=== PATIENT | female | born 1940 | race Caucasian/White ===

== ENCOUNTER 2019-05-04 17:31 | Inpatient (IN) | payer MEDICARE, OTHER ==
[~2019-05-04] VITALS: Ht 160 cm; Wt 64.9 kg
[2019-05-04 18:26] LABS: Basophils # (auto) 0 uL; Basophils % (auto) 0.4 % (0.0-2.0); Eosinophils # (auto) 0 uL; Hematocrit 39.3 % (36.0-46.0); Lymphocytes # (auto) 1.2 uL; Mean Corpuscular Hemoglobin 34.1 pg (28.0-32.0); Monocytes # (auto) 0.6 uL; Neutrophils # (auto) 6.5 uL; White Blood Cell 8.3 10^3/uL (4.4-10.8)
[2019-05-04 18:28] LABS: Eosinophils % (auto) 0.6 % (0.0-7.0); Hemoglobin 13.2 g/dL (12.2-16.2); Lymphocytes % (auto) 13.9 % (10.0-50.0); Mean Corpuscular Hgb Conc. 33.7 g/dL (32.0-36.0); Mean Corpuscular Volume 101.1 fL (80.0-100.0); Monocytes % (auto) 6.7 % (0.0-12.0); Neutrophils % (auto) 78.4 % (37.0-80.0); Platelet Count (auto) 184 10^3/uL (140-450); Red Blood Cells 3.88 10^6/uL (4.0-5.20); Red Cell Distribution Width 15.6 % (11.8-14.3)
[2019-05-04 18:42] LABS: Albumin 3.1 g/dL (3.4-5.0); Calcium 8.7 mg/dL (8.5-10.1)
[2019-05-04 18:47] LABS: Bilirubin, Total 0.8 mg/dL (0.2-1.0); Total Protein 6.6 g/dL (6.4-8.2)
[2019-05-04] MEDS ORDERED: MORPHINE SULFATE 4 MG/ML SYR/VIAL IV ONE (19:30)
[2019-05-04] MEDS ORDERED: ONDANSETRON HCL 4 MG/2 ML VIAL IV ONE (19:30)
[2019-05-04] MEDS ORDERED: MORPHINE SULF INJ 2 MG/ML SYRINGE 1ML IV PRN (22:30)
[2019-05-04] MEDS ORDERED: NITROGLYCERIN 0.4 MG SL TAB SL PRN (22:30)
[2019-05-04] MEDS ORDERED: ONDANSETRON HCL 4 MG/2 ML VIAL IV PRN (22:30)
[2019-05-04] MEDS ORDERED: SODIUM CHLORIDE 0.9% 1,000 ML IV SCH (22:30)
[2019-05-04] MEDS: MORPHINE SULF INJ 2 MG/ML SYRINGE 1ML IV PRN (23:11)
[2019-05-05] VITALS (7 sets, daily range): BP systolic 97–146; BP diastolic 58–83
--- NOTE | 2019-05-05 00:05 | NUR ---
Telemetry admit from ER EBONY RUTLEDGE admitted to Telemetry. Patient oriented to ELAINE FORMAN, primary RN, unit, room, bed, and unit policies regarding patient care and visiting hours. Patient now on continuous telemetry monitoring, tele box #28 and telemetry reading on arrival to unit is Sinus Rhythm 60BPM. Patient placed on 12L oxygen via oximyzer,weighed by bedscale and encouraged to call if they need something. All questions and concerns addressed, patient verbalized understanding. Daughter at bed side.
--- NOTE | 2019-05-05 00:15 | NUR ---
MED REC UNABLE TO OBTAIN HOME MEDICATION RECORD DUE TO PATIENT NOT RECALLING NAMES/DOSAGES DAUGHTER STATES SHE WILL BRING LIST 10/7 AM.
--- NOTE | 2019-05-05 00:20 | NUR ---
ADVANCE DIRECTIVE/ POA COPY IN HARD CHART
--- NOTE | 2019-05-05 00:25 | NUR ---
WOUND WOUND TO LEFT LOWER LEG ASSESSED, PHOTO TAKEN AND FILED, RE DRESSED WITH ADHESIVE OPTIFOAM.
--- NOTE | 2019-05-05 00:30 | NUR ---
IV insertion IV access obtained, via clean sterile technique by inserting 22 gauge catheter at right wrist after 1 attempt. IV secured properly. No trauma to site. Patient tolerated well.
--- NOTE | 2019-05-05 00:32 | NUR ---
IV removal LAC IV NON PATENT IV DC'd with clean sterile technique, catheter fully intact. Pressure dressing applied to site. Patient tolerated well.
--- NOTE | 2019-05-05 01:11 | NUR ---
PATIENT DAUGHTER SYBIL REQUESTED TO STAY OVER NIGHT. PATIENT AND DAUGHTER EXPLAINED HOSPITAL POLICY REGARDING OVERNIGHT STAYS. HOWEVER DAUGHTER INSISTS WHILE STATING "MY MOTHER CODED NOT TOO LONG AGO WHILE IN HOSPITAL AND THAT IS WHY IM WORRIED FOR HER" FIBRE OPTIC CABLE SPLICER, DASHA AWARE. DAUGHTER GRANTED PERMISSION TO STAY FOR ONE NIGHT ONLY. DAUGHTER VERBALIZES UNDERSTANDING. WILL MOVE PATIENT FROM ROOM 221B TO ROOM 206.
[2019-05-05] MEDS: MORPHINE SULF INJ 2 MG/ML SYRINGE 1ML IV PRN ×3 (04:05→13:35)
[2019-05-05 05:52] LABS: Basophils # (auto) 0 uL; Basophils % (auto) 0.1 % (0.0-2.0); Eosinophils # (auto) 0 uL; Hematocrit 37.5 % (36.0-46.0); Hemoglobin 12.8 g/dL (12.2-16.2); Lymphocytes # (auto) 0.8 uL; Lymphocytes % (auto) 8.7 % (10.0-50.0); Mean Corpuscular Hemoglobin 34.4 pg (28.0-32.0); Mean Corpuscular Hgb Conc. 34.2 g/dL (32.0-36.0); Mean Corpuscular Volume 100.8 fL (80.0-100.0); Monocytes # (auto) 0.8 uL; Monocytes % (auto) 8.6 % (0.0-12.0); Neutrophils # (auto) 7.4 uL; Neutrophils % (auto) 82.6 % (37.0-80.0); Platelet Count (auto) 156 10^3/uL (140-450); Red Blood Cells 3.72 10^6/uL (4.0-5.20); Red Cell Distribution Width 15.6 % (11.8-14.3)
[2019-05-05 06:06] LABS: INR 1.42 (0.9-1.15); Partial Thromboplastin Time 31.6 sec (23.64-32.05)
[2019-05-05 06:50] LABS: BUN/Creatinine Ratio 14.2; Calcium 8.5 mg/dL (8.5-10.1); Potassium 4.5 mmol/L (3.5-5.1)
--- NOTE | 2019-05-05 07:28 | NUR ---
CARE ENDORSED TO EDER JAUREGUI
--- NOTE | 2019-05-05 08:40 | NUR ---
PT RESTING IN BED, NO DISTRESS NOTED. PT REPORTS 7/10 PAIN IN LEFT HIP. CONFIRMED CODE STATUS WITH PT AND DAUGHTER. THEY REPORT PT CAN HAVE CPR BUT NOT TO INTUBATE. 125 MLS SLIGHTLY HAZY YELLOW ORANGE URINE NOTED IN TERRELL. INSPIRATORY AND EXPIRATORY WHEEZING NOTED. WILL GIVE PRN PAIN MEDICINE. PT ON 12 OXYMIZER. WILL CONTINUE TO MONITOR.
[2019-05-05] MEDS ORDERED: ASPirin 81 mg TAB PO SCH (10:00)
--- NOTE | 2019-05-05 10:16 | NUR ---
PATIENT UP IN CHAIR, PHYSICAL THERAPY REPORTS SHE IS STILL MAX ASSIST TO CHAIR, AND WEAK. Addendum: 05/05/19 at 1017 by RYLEE GRANDA RN WRONG PATIENT
--- NOTE | 2019-05-05 11:32 | NUR ---
CALLED [facility], ANSWERING SERVICE SAID TO REQUEST MEDICAL RECORDS FROM FAX [phone]. ASKED ELECTRONIC PAGINATION SYSTEM OPERATOR FOR FAX SHEET, UNABLE TO PRINT AT THIS TIME AND SHE WILL KEEP TRYING.
[2019-05-05 11:43] LABS: Urine Bacteria NONE SEEN /hpf (None Seen); Urine Blood 2+ /uL (Negative); Urine Hyaline Cast FEW /lpf (0 - 2); Urine Mucus FEW (None Seen); Urine Specific Gravity 1.018 (1.001-1.035); Urine WBC 9 /hpf (0 - 5)
[2019-05-05] MEDS ORDERED: CLOPIDOGREL BISULFATE 75 MG TAB PO ONE (11:45)
--- NOTE | 2019-05-05 11:55 | NUR ---
WOUND CARE NOTE: PATIENT NOTED TO HAVE WOUND UPON ADMIT. WOUND PHOTO TAKEN BY BEDSIDE NURSE AT THAT TIME, WOUND CONSULT ORDERED. PATIENT ADMITTED TO [facility] WITH DIAGNOSIS OF L HIP FRACTURE. CURRENT SMILEY SCORE IS 18. PATIENT IS ABLE TO SELF TURN/REPOSITION SELF. SKIN/WOUND CARE PLAN IS IN PLACE. SHE HAS A SKIN TEAR/ABRASION TO LEFT LOWER EXTREMITY. BEDSIDE NURSE APPLIED THERAHONEY, OPTIFOAM GENTLE DRESSING TO WOUND. RECOMMEND: SKIN/WOUND CARE PLAN, Q 3 DAY/PRN DRESSING CHANGE OF WOUND TO LLE, CONTINUED MONITORING BY WOUND CARE TEAM. Addendum: 05/05/19 at 1756 by Jesenia Garcia RN Amended: Links added.
[2019-05-05] MEDS ORDERED: APIXABAN 2.5 MG TAB PO ONE (12:15)
--- NOTE | 2019-05-05 13:36 | NUR ---
PT SIGNED REQUEST TO DISCLOSE INFORMATION FORM. FAXED REQUEST FOR CARDIAC INFORMATION AND ECHO RESULTS TO [facility]
--- NOTE | 2019-05-05 13:48 | NUR ---
CALLED [facility]ESS [facility] TO SEE WHEN THEY WILL DO STRESS TEST, NO ANSWER, JUST KEEPS RINGING, WILL TRY AGAIN.
--- NOTE | 2019-05-05 14:49 | NUR ---
DR STEEN SAW PATIENT FOR PULMONARY. NEW ORDERS FOR BREATHING TREATMENTS AND CHEST X RAY. NOTIFIED PT COUGHED UP SMALL AMOUNT OF BLOOD. MD OLIVARES.
--- NOTE | 2019-05-05 15:20 | NUR ---
WOUND CARE DONE PT LEFT LEG. WOUND CLEANSED AND HONEY AND OPTIFOAM APPLIED PER WOUND NURSE.
[2019-05-05] MEDS: HYDROcodone-ACET 5/325MG TAB PO PRN (16:29)
[2019-05-05] MEDS: IPRATROPIUM BROM 0.5 MG/2.5ML INH SOL NEB SCH (18:47)
[2019-05-05] MEDS: ALBUTEROL SULF 2.5 MG/0.5ML(0.5%) NEB SOLN NEB SCH (18:47)
--- NOTE | 2019-05-05 19:15 | NUR ---
OPENING NOTE Received report from day shift RN. Patient is resting in bed with no s/s of distress or pain. Patient is receiving 12L O2 via oxymizer. Current O2 saturation is 94%. Reinoso catheter is hanging below level of bladder, free of any kinks and draining. Bed is in lowest/locked position with side rails up X's 2 and call light is within reach of patient. Bedside table is within reach of patient. Will continue care.
--- NOTE | 2019-05-05 20:28 | NUR ---
Pt total urine output 300 mls for shift, night nurse notified.
[2019-05-05] MEDS: APIXABAN 2.5 MG TAB PO SCH (21:40)
--- NOTE | 2019-05-05 22:00 | NUR ---
NURSING NOTE Educated patient to spit any phlegm into specimen container at bedside. Patient verbalized understanding. Educated patient that stress test is planned for tomorrow and she will not be able to eat or drink after midnight. Patient denies any tingling or numbness to lower extremities. Demonstrates adequate perfusion and circulation to bilateral lower extremities. Educated patient that we will have to turn her frequently to prevent any ulcers. Patient wished not to be turned, because it hurts her hip. She states that she has been able to move a little bit by herself. Will provide IS as ordered.
[2019-05-06] VITALS (7 sets, daily range): BP systolic 123–150; BP diastolic 74–85
--- NOTE | 2019-05-06 | NUR ---
NPO Patient is NPO for ordered stress test. Patient aware and verbalized understanding. Removed drinks and food from bedside.
[2019-05-06] MEDS: MORPHINE SULF INJ 2 MG/ML SYRINGE 1ML IV PRN (04:26)
[2019-05-06] MEDS: ONDANSETRON HCL 4 MG/2 ML VIAL IV PRN ×3 (04:39→20:15)
--- NOTE | 2019-05-06 04:56 | NUR ---
IV insertion IV access obtained, via clean sterile technique by inserting 22 gauge catheter at right wrist. IV secured properly. No trauma to site. Patient tolerated well. IV to left wrist still patent and flushing well.
[2019-05-06] MEDS: IPRATROPIUM BROM 0.5 MG/2.5ML INH SOL NEB SCH ×3 (05:25→18:30)
[2019-05-06] MEDS: ALBUTEROL SULF 2.5 MG/0.5ML(0.5%) NEB SOLN NEB SCH ×3 (05:25→18:30)
[2019-05-06 05:53] LABS: Basophils # (auto) 0 uL; Basophils % (auto) 0.4 % (0.0-2.0); Eosinophils # (auto) 0 uL; Eosinophils % (auto) 0.1 % (0.0-7.0); Hematocrit 40.1 % (36.0-46.0); Hemoglobin 13.5 g/dL (12.2-16.2); Lymphocytes # (auto) 1.1 uL; Mean Corpuscular Hemoglobin 34.1 pg (28.0-32.0); Mean Corpuscular Hgb Conc. 33.7 g/dL (32.0-36.0); Mean Corpuscular Volume 101.2 fL (80.0-100.0); Monocytes # (auto) 0.8 uL; Monocytes % (auto) 9.1 % (0.0-12.0); Neutrophils # (auto) 7.2 uL; Neutrophils % (auto) 78.4 % (37.0-80.0); Nucleated Red Blood Cells % 0.1 %; Platelet Count (auto) 163 10^3/uL (140-450); Red Blood Cells 3.96 10^6/uL (4.0-5.20); White Blood Cell 9.1 10^3/uL (4.4-10.8)
[2019-05-06 05:58] LABS: BUN/Creatinine Ratio 18.8; Calcium 8.9 mg/dL (8.5-10.1); INR 1.64 (0.9-1.15); Magnesium 2.3 mg/dL (1.6-2.6); Partial Thromboplastin Time 35.4 sec (23.64-32.05); Potassium 4.7 mmol/L (3.5-5.1)
--- NOTE | 2019-05-06 06:31 | NUR ---
TOTAL URINE OUTPUT 260ml urine output this shift.
[2019-05-06] MEDS: HYDROcodone-ACET 5/325MG TAB PO PRN ×3 (08:01→21:58)
[2019-05-06] MEDS ORDERED: ADENOSINE 55 MG in GIVE UN-DILUTED 0 ML IV STA (08:02)
--- NOTE | 2019-05-06 08:08 | NUR ---
Patient off unit Patient transported to [facility] via bed with portable oxygen by andie Ortiz. Will cont care on arrival
[2019-05-06] MEDS ORDERED: ALBUTEROL SULF 2.5 MG/0.5ML(0.5%) NEB SOLN NEB ONE (08:45)
[2019-05-06] MEDS ORDERED: IPRATROPIUM BROM 0.5 MG/2.5ML INH SOL NEB ONE (08:45)
[2019-05-06] MEDS: CLOPIDOGREL BISULFATE 75 MG TAB PO SCH (10:47)
[2019-05-06] MEDS: APIXABAN 2.5 MG TAB PO SCH ×2 (10:47→21:59)
--- NOTE | 2019-05-06 11:20 | NUR ---
Respiratory note: PT RECEIVED A ONE TIME HHN TX FOR STRESS TEST. PT REFUSED HHN TX DUE TO RECENT ADMINISTRATION OF MEDICATION VIA HHN.
[2019-05-06] MEDS ORDERED: LACTULOSE 20Gm/30ML SOLN PO PRN (11:45)
[2019-05-06] MEDS: MORPHINE SULFATE 4 MG/ML SYR/VIAL IV PRN ×2 (12:53→20:15)
--- NOTE | 2019-05-06 13:29 | NUR ---
Regarding Cardio report from Dr's office fax received from Dr. Marinelli's office and placed in chart.
[2019-05-06] MEDS ORDERED: DOCUSATE SOD 100 MG CAP PO ONE (16:15)
--- NOTE | 2019-05-06 18:00 | NUR ---
Patient refused turning all day, encouraged patient frequently to turn and reposition even with daughter at bedside. Patient constantly educated and reinforcement provided on skin care and risk for skin breakdown but she continued to refuse the whole shift. Patient is now agreeable to turn. Patient turned to right side with assistance of raciel Bundy and student rn. Pt did not tolerate well and sacrum unable to be visualized. Patient's bilat buttocks noted intact but unable to fully assess due to patient not fully turning and screaming and refusing turning all the way. Partial linen change performed and chux and draw sheets changed at this time. Patient sat at 89% on oxymizer at 15 L. Patient refusing pain meds at this time. Will cont to monitor.
--- NOTE | 2019-05-06 18:45 | NUR ---
Patient states tolerable pain level 5/10 and "comfortable at this time". Patient's daughter requested pain medication for patient but patient refused as she states she's comfortable right now. No s/s of pain noted. Patient encouraged to call for assistance as needed or if pain recurs and needs pain meds. Patient and daughter verbalized understanding. No acute distress noted at this time. Will endorse to oncoming rn.
--- NOTE | 2019-05-06 19:00 | NUR ---
OPENING NOTE Received report from day shift RN. Patient is A&O X's 4 with no s/s of distress noted. Patient's daughter is at bedside. Educated patient on POC and to use call light when in need of assistance. Patient verbalized understanding. Patient's daughter will stay at bedside tonight. tile inspector aware. Bed is in lowest/locked position with side rails up X's 2 and call light is within reach of patient. Patient receiving 12L O2 via Oxymizer. Will continue care.
[2019-05-06] MEDS: DOCUSATE SOD 100 MG CAP PO SCH (21:59)
--- NOTE | 2019-05-07 00:27 | NUR ---
REFUSED REPOSITIONING Patient refuses to be repositioned at this time. Patient and patient's daughter requested to wait till morning because patient is comfortable right now and will be in pain and scream if moved. Educated patient on reason for turning. She verbalized understanding but still wants to wait till morning.
[2019-05-07 05:04] VITALS: BP 140/94
[2019-05-07 05:13] LABS: Basophils # (auto) 0.1 uL; Eosinophils # (auto) 0 uL; Hemoglobin 13.5 g/dL (12.2-16.2); Mean Corpuscular Hgb Conc. 33.7 g/dL (32.0-36.0); Neutrophils # (auto) 9.5 uL
[2019-05-07 05:16] LABS: Basophils % (auto) 0.4 % (0.0-2.0); Eosinophils % (auto) 0.1 % (0.0-7.0); Lymphocytes # (auto) 1.6 uL; Lymphocytes % (auto) 12.7 % (10.0-50.0); Mean Corpuscular Hemoglobin 34.1 pg (28.0-32.0); Mean Corpuscular Volume 101.3 fL (80.0-100.0); Monocytes # (auto) 1.3 uL; Monocytes % (auto) 10.6 % (0.0-12.0); Neutrophils % (auto) 76.2 % (37.0-80.0); Nucleated Red Blood Cells % 0.1 %; Platelet Count (auto) 173 10^3/uL (140-450); Red Blood Cells 3.95 10^6/uL (4.0-5.20); Red Cell Distribution Width 16.3 % (11.8-14.3); White Blood Cell 12.5 10^3/uL (4.4-10.8)
[2019-05-07 05:25] LABS: INR 2.25 (0.9-1.15); Partial Thromboplastin Time 36.6 sec (23.64-32.05)
[2019-05-07 05:28] LABS: Potassium 5.2 mmol/L (3.5-5.1)
[2019-05-07 05:32] LABS: BUN/Creatinine Ratio 27.7; Calcium 9.4 mg/dL (8.5-10.1); Magnesium 2.4 mg/dL (1.6-2.6)
[2019-05-07] MEDS: HYDROcodone-ACET 5/325MG TAB PO PRN ×2 (06:10→21:48)
[2019-05-07] MEDS: IPRATROPIUM BROM 0.5 MG/2.5ML INH SOL NEB SCH ×3 (06:30→18:45)
[2019-05-07] MEDS: ALBUTEROL SULF 2.5 MG/0.5ML(0.5%) NEB SOLN NEB SCH ×3 (06:30→18:45)
--- NOTE | 2019-05-07 06:30 | NUR ---
PAGED MD BRUCE Left message in regards to change in labs, specifically Potassium at 5.2 and WBC at 12.5. Awaiting call back from .
[2019-05-07 09:00] VITALS: BP 148/91
[2019-05-07] MEDS: ONDANSETRON HCL 4 MG/2 ML VIAL IV PRN ×2 (09:11→13:45)
[2019-05-07] MEDS: CLOPIDOGREL BISULFATE 75 MG TAB PO SCH (09:12)
[2019-05-07] MEDS: DOCUSATE SOD 100 MG CAP PO SCH ×2 (09:13→21:36)
[2019-05-07] MEDS: APIXABAN 2.5 MG TAB PO SCH (09:13)
[2019-05-07] MEDS: MORPHINE SULFATE 4 MG/ML SYR/VIAL IV PRN ×2 (09:15→13:46)
[2019-05-07 13:00] VITALS: BP 123/72
--- NOTE | 2019-05-07 13:20 | NUR ---
Pulkrista at bedside MD Weller at bedside. New onset hematuria noted to melissa catheter, MD Bethea paged to notify and awaiting call back at this time. New orders received from Dr Weller for cxr, tech paged to bedside. Sputum sample sent as ordered, small amount hemoptysis noted. Will cont to monitor.
--- NOTE | 2019-05-07 13:26 | NUR ---
Torres catheter irrigated with normal saline due to patency not noted after clot seen in tubing. Torres catheter patent after irrigation of normal saline. Hematuria continues to torres catheter x1 blood clot. Chux changed at this time. Patient c/o pain and will medicate as ordered.
--- NOTE | 2019-05-07 14:20 | NUR ---
assessment Patient is a 78 year old female who is alert and oriented. Patients cognitive abilities are intact. Prior to admission patient lived home with family and functioned with assistance from her daughter Eva and [facility] hospice. Per patient she will resume hospice on discharge. Per patient she will return home to her prior living arrangements post discharge and family will transport her home. Patient informed me she has a fww, 02, and bedside commode. I informed patient she has a right to speak to a 7th grade social studies teacher regarding all care. I informed patient she has a right to participate in any and all discharge planning. Patient has a POA and advanced directive. Patient verbalized understanding and agreed to discharge plan. Addendum: 05/07/19 at 1427 by Becky ANDRES Amended: Links added.
--- NOTE | 2019-05-07 14:47 | NUR ---
Spoke to Pulm MD Weller aware of new CXR results, no new orders at this time. Cont care. Awaiting call back from Dr Bethea. Patient resting comfortably in bed at this time with eyes closed and no acute distress noted. Patient currently on 15 L oxymizer and sat 91%. Family at bedside. Cont care
[2019-05-07] MEDS ORDERED: cefTRIAXone 1GM/50ML D5W 50 ML IV ONE (15:45)
--- NOTE | 2019-05-07 16:00 | NUR ---
Hospitalist at bedside MD Bethea at bedside aware of patient's status including hematuria and resp status. spoke to patient and pt's family at bedside regarding POC. New orders received for social service consult for home on hospice, per MD Bethea he will be back in the morning to speak to patient's daughter regarding POC. I called child protective services social worker Alexia and made aware of pending consult, she states she will see patient tomorrow. Patient and family at bedside verbalized understanding and agree for dc plan. COnt care
[2019-05-07] MEDS ORDERED: diphenhdrAMINE HCL 50 MG/1 ML VL IV PRN (16:15)
[2019-05-07 16:49] VITALS: BP 130/83
--- NOTE | 2019-05-07 17:05 | NUR ---
IS Patient working with IS as ordered, oxygen noted on 15 L oxymizer and patient saturation after deep breathing is 83-85%. R.T paged to bedside
--- NOTE | 2019-05-07 17:12 | NUR ---
PATIENT PLACE ON NON REBREATHER AT 15L BY Jean DANGELO AND SATS 90%. WILL CONT TO MONITOR
--- NOTE | 2019-05-07 17:15 | NUR ---
Respiratory note: PT PLACED ON NON-REBREATHER MASK AT 15LPM. SATURATIONS CURRENTLY 90%. PT APPEARS TO BE BREATHING COMFORTABLY WITH INSPIRATORY CRACKLES NOTED THROUGHOUT. SHANIA TITUS IS AWARE.
--- NOTE | 2019-05-07 19:00 | NUR ---
Patient care endorsed endorsed care to Farooq rn. Patient laying in bed semi fowlers position seems comfortable. Pt currently on non rebreather mask at 15lpm sat 92%. Fall precs in place per protocol. No s/s of pain noted. Patient states tolerable pain level at this time. 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 Bilat heels off loaded on pillows. Patient's family at bedside encouraged to call for assistance
--- NOTE | 2019-05-07 19:21 | NUR ---
Opening Shift Note Assumed care of patient, awake and alert x 4. Patient is on 15 l/min non-rebreather mask. Patient has some increased work of breathing but states she feels fine and can speak without any difficulty. Board updated. Bed is in lowest position and locked. Call light within reach. Board updated. Instructed on POC and to call for assist PRN, will continue to monitor for changes Q1hr and PRN.
--- NOTE | 2019-05-07 20:04 | NUR ---
Patient is refusing to turn to allow me to assess her back and sacrum or to place pillow on opposite side of body. Patient is currently turned to her right side. Patient educated on importance of turning regularly to distribute body weight and make sure a pressure area does not form. Patient acknowledged this but states she still does not want to be turned because it is too painful. Patient is alert and oriented x 4.
--- NOTE | 2019-05-07 20:23 | NUR ---
Paged MD Bethea to notify him of the patient's desaturation earlier in the afternoon and the patient continuing to need a non-rebreather mask to maintain adequate oxygenation. When she takes the mask off she almost immediately drops to 78-80. Patient is currently at 98% on 15l/min nonrebreather. Awaiting call back.
[2019-05-08] MEDS: HYDROcodone-ACET 5/325MG TAB PO PRN ×3 (03:55→13:39)
[2019-05-08 05:52] VITALS: BP 132/87
[2019-05-08] MEDS: ALBUTEROL SULF 2.5 MG/0.5ML(0.5%) NEB SOLN NEB SCH ×3 (06:49→18:00)
[2019-05-08] MEDS: IPRATROPIUM BROM 0.5 MG/2.5ML INH SOL NEB SCH ×3 (06:49→18:00)
--- NOTE | 2019-05-08 07:36 | NUR ---
OPENING NOTE Assumed care of patient from [facility] RN, Farooq. Patient resting in bed with eyes closed, even rise and fall of chest noted. No S/S of distress/SOB or pain. Non-rebreather mask in place, connected to 15L O2. Reinoso catheter intact, patent and hung below bed. Minimal amount of radha colored urine present. Patient's daughter at bedside. Instructed patient's daughter on POC, all questions answered and verbalized understanding. Bed in lowest, locked position with side rails up x2. Fall precautions in place and call light within reach. Will continue to monitor for changes Q1hr and PRN.
[2019-05-08 08:27] VITALS: BP 145/83
--- NOTE | 2019-05-08 09:17 | NUR ---
REFUSAL Patient refusing to be turned. Attempted to educate patient on importance of frequent turning, patient continues to refuse. Patient's daughter at bedside.
[2019-05-08] MEDS: DOCUSATE SOD 100 MG CAP PO SCH ×3 (09:20→22:30)
[2019-05-08] MEDS: cefTRIAXone 1GM/50ML D5W 50 ML IV SCH (09:20)
[2019-05-08] MEDS: LORazepam 2MG/ML-1ML VIAL IV PRN ×3 (10:40→22:31)
--- NOTE | 2019-05-08 11:55 | NUR ---
RT NOTE: PT. SLEEPING NO S/S OF RESPIRATORY DISTRESS NOTED. PT. HR 74, RR 20, POX 92% ON NRB MASK 15L. PT. DAUGHTERS BEDSIDE AND STATED SHE HASN'T SLEPT AND IF SHE DOESN'T NEED THE TX. THEN SKIP IT THIS ROUND. PT. DAUGHTERS AWARE TO NOTIFY RN IF BREATHING TX. IS NEEDED. SHANIA ABREU BEDSIDE AND AWARE.
--- NOTE | 2019-05-08 13:42 | NUR ---
HOSPICE Hospice insurance sales representative, Pamela, at patient's bedside along with patient's daughter.
[2019-05-08] MEDS: MORPHINE SULFATE 10 MG/5 ML ORAL SOLN PO PRN ×2 (15:16→20:22)
--- NOTE | 2019-05-08 15:48 | NUR ---
D/C Planning Per consult for Hospice. Contacted [facility] Ph:( [phone]) Fax:) faxed medical records. Per Daija from [facility] referral has been received and consent has been sign by daughter Suzi. will set up transportation upon d/ day. Addendum: 05/08/19 at 1556 by TOM WOO Amended: Links added. Addendum: 05/08/19 at 1617 by TOM WOO Contacted [facility] transportation Ph:) spoke to Val. Advised Val to arrange transportation fish bait picker time at 11:00 via [employer].
--- NOTE | 2019-05-08 18:00 | NUR ---
Respiratory note: AT BEDSIDE FOR MED NEB TX, PT SLEEPING AT THIS TIME. FAMILY REQUESTED TO LET PT SLEEP. PT PRESENTING NO RESPIRATPRY DISTRESS, RN AND FAMILY AWARE TO HAVE RT PAGED IF MED NEB TX IS NEEDED. WILL CONTINUE TO MONITOR.
--- NOTE | 2019-05-08 19:20 | NUR ---
CLOSING NOTE Endorsed care of patient to NOC RN, Farooq.
--- NOTE | 2019-05-08 19:31 | NUR ---
Opening Shift Note Assumed care of patient, awake and alert x 4. Patient is on 15 l/min non-rebreather mask. Board updated. Bed is in lowest position and locked. Call light within reach. Board updated. Instructed on POC and to call for assist PRN, will continue to monitor for changes Q1hr and PRN.
--- NOTE | 2019-05-08 21:06 | NUR ---
Respiratory note: SPOKE TO SHANIA JACOB ABOUT PT HIGH O2 DEMAND, PT IS PRESENTING NO RESPIRATORY DISTRESS AT THIS TIME, SPO2 92% ON NRB. DR. BRUCE AWARE OF HIGH O2. WILL CONTINUE TO MONITOR PT.
[2019-05-08 22:00] VITALS: BP 135/89
[2019-05-09] MEDS: LORazepam 2MG/ML-1ML VIAL IV PRN ×3 (02:04→14:39)
[2019-05-09 03:00] VITALS: BP 135/89
[2019-05-09 05:00] VITALS: BP 123/79
[2019-05-09] MEDS: ALBUTEROL SULF 2.5 MG/0.5ML(0.5%) NEB SOLN NEB SCH ×2 (06:07→12:09)
[2019-05-09] MEDS: IPRATROPIUM BROM 0.5 MG/2.5ML INH SOL NEB SCH ×2 (06:08→12:09)
[2019-05-09] MEDS: MORPHINE SULFATE 10 MG/5 ML ORAL SOLN PO PRN ×3 (06:56→18:14)
--- NOTE | 2019-05-09 07:21 | NUR ---
OPENING NOTE Assumed care of patient from [facility] RN, Farooq. Patient resting in bed with eyes closed, even rise and fall of chest noted. No S/S of distress/SOB or pain. Non-rebreather mask in place, connected to 15L O2. Reinoso catheter intact, patent and hung below bed. Minimal amount of radha colored urine present. Patient's daughter at bedside. Instructed patient's daughter on POC, all questions answered and verbalized understanding. Bed in lowest, locked position with side rails up x2. Fall precautions in place and call light within reach. Will continue to monitor for changes Q1hr and PRN.
[2019-05-09] MEDS: cefTRIAXone 1GM/50ML D5W 50 ML IV SCH (08:12)
[2019-05-09] MEDS: DOCUSATE SOD 100 MG CAP PO SCH (08:12)
[2019-05-09 08:40] VITALS: BP 157/96
--- NOTE | 2019-05-09 08:54 | NUR ---
REFUSAL Patient refused to be turned or for assessment of sacrum/posterior side of body. Patient is currently supine. Educated on importance of frequent turning to prevent skin breakdown. Patient verbalized understanding but continues to refuse stating that "it hurts too bad".
[2019-05-09] MEDS ORDERED: FUROSEMIDE 20 MG/2 ML VIAL IV ONE (11:15)
[2019-05-09 13:50] VITALS: BP 156/92
--- NOTE | 2019-05-09 15:03 | NUR ---
NUTRITION ASSESSMENT NOTES Please refer to link notes of nutrition screen form filed under the intervention section of the plan of care for further details. Est. Needs: 1600 kcal to 1950 kcal (25-30 kcal/kgBW), 65 gms to 78 gms pro (1.0-1.2 gms/kgBW). Will continue to monitor pertinent labs and reassess nutrient need prn Thank you. Addendum: 05/09/19 at [address] Amended: Links added.
--- NOTE | 2019-05-09 15:44 | NUR ---
D/C Planning Per consult for hospice. Followed up call to [facility] spoke to Mable regarding family concerns. Per Mable from [facility] they cancel service for Pt and stated they do not have staff available. Informed daughter Suzi at bedside and that [facility] is unable to provided services for Pt and provided her a list of agencies. Pt daughter Suzi requested [facility] ) Fax:( [phone]) faxed medical records. Per Shena from [facility] referral has been received and service to start upon d/c day. Contacted [facility] Ph:) spoke to Jimbo. Advised Jimbo from [facility] to arrange transportation between 17:00-16:00 via gurney with oxygen. Advised SHANIA Perrin. Addendum: 05/09/19 at 1558 by TOM WOO Amended: Links added.
[2019-05-09 17:41] VITALS: BP 130/76
--- NOTE | 2019-05-09 18:30 | NUR ---
DISCHARGE Patient being discharged home on hospice. All questions and concerns addressed, patient's daughter verbalized understanding. Medication reconciliation form completed and copy given to patient. IV removed with catheter intact and pressure dressing applied. Reinoso catheter left intact per MD request. Telemetry unit returned to ICU. Patient taken to vehicle via gurney with all personal belongings, accompanied by transportation staff and family member. No distress noted at time of departure.
== END 2019-05-09 18:30 | disposition hospice, home (50) | DRG 535 ==
LOC: ER 17:31 → EDBD 17:31 → TELE 17:32 → TELE-CENTR 23:40
PROVIDERS: ADMIT Internal Medicine; ATTEND Internal Medicine Geriatric Medicine
DX: S72.142A Displaced intertrochanteric fracture of left femur, initial encounter for closed fracture (principal); J96.21 Acute and chronic respiratory failure with hypoxia; E87.1 Hypo-osmolality and hyponatremia; R04.2 Hemoptysis; R73.9 Hyperglycemia, unspecified; I50.9 Heart failure, unspecified; I48.91 Unspecified atrial fibrillation; I11.0 Hypertensive heart disease with heart failure; J44.9 Chronic obstructive pulmonary disease, unspecified; I25.10 Atherosclerotic heart disease of native coronary artery without angina pectoris; M16.12 Unilateral primary osteoarthritis, left hip; R31.9 Hematuria, unspecified; J84.10 Pulmonary fibrosis, unspecified; I07.1 Rheumatic tricuspid insufficiency; Z96.641 Presence of right artificial hip joint; W06.XXXA Fall from bed, initial encounter; Z51.5 Encounter for palliative care; Z82.3 Family history of stroke; Z83.3 Family history of diabetes mellitus; Z86.73 Personal history of transient ischemic attack (TIA), and cerebral infarction without residual deficits; Z95.5 Presence of coronary angioplasty implant and graft; Z99.81 Dependence on supplemental oxygen; Y93.89 Activity, other specified; Y92.89 Other specified places as the place of occurrence of the external cause; Y99.8 Other external cause status
CPT/HCPCS: 36415; 71045; 73502; 80048; 80053; 80061; 81001; 83735; 84484; 85025; 85610; 85730; 87070; 87205; 93005; 93017; 93306; 94640; 96361; 96374; 96375; 96376; G0378; J0153; J0696; J2405